=== PATIENT | male | born 1955 | race Caucasian/White ===

== ENCOUNTER 2020-07-16 10:28 | Emergency (ER) | payer SELFPAY ==
[2020-07-16] MEDS ORDERED: Aspirin 81 MG Tab.Chew PO ONE (11:02)
[2020-07-16] MEDS ORDERED: Ketorolac 60 MG/2 ML SDV IM ONE (11:04)
--- NOTE | 2020-07-16 11:45 | EDM.PDOC ---
ED HPI GENERAL MEDICAL PROBLEM - General Chief Complaint: Chest Pain Stated Complaint: CHEST PAINS Time Seen by Provider: 07/16/20 10:45 Source of Information: Reports: Patient History Limitations: Reports: No Limitations - History of Present Illness INITIAL COMMENTS - FREE TEXT/NARRATIVE: Patient presented to the ED because of chest pain for 3 days and left shoulder pain for many years. The chest pain is kind of dull ache, intermittent. There is no nausea,vomiting, dyspnea or diaphoresis. - Related Data Allergies Allergy/AdvReac Type Severity Reaction Status Date / Time No Known Allergies Allergy Verified 07/16/20 10:42 Home Meds: Home Meds Lisinopril/Hydrochlorothiazide [Lisinopril-Hctz 10-12.5 mg Tab] 1 tab DAILY 07/16/20 [History] Simvastatin 10 mg PO BEDTIME 07/16/20 [History] Tamsulosin HCl [Flomax] 0.4 mg PO BEDTIME 07/16/20 [History] ED ROS GENERAL - Review of Systems Review Of Systems: See Below Constitutional: Reports: No Symptoms HEENT: Reports: No Symptoms Respiratory: Reports: No Symptoms Cardiovascular: Reports: Chest Pain Endocrine: Reports: No Symptoms GI/Abdominal: Reports: No Symptoms : Reports: No Symptoms Musculoskeletal: Reports: No Symptoms Skin: Reports: No Symptoms Neurological: Reports: No Symptoms Psychiatric: Reports: No Symptoms ED EXAM, GENERAL - Physical Exam Exam: See Below Exam Limited By: No Limitations General Appearance: Alert, No Apparent Distress Eye Exam: Bilateral Eye: PERRL Ears: Normal External Exam, Normal Canal Nose: Normal Inspection, Normal Mucosa Throat/Mouth: Normal Inspection, Normal Lips, Normal Teeth Head: Atraumatic, Normocephalic Neck: Normal Inspection, Supple, Non-Tender Respiratory/Chest: No Respiratory Distress, Lungs Clear, Normal Breath Sounds Cardiovascular: Normal Peripheral Pulses, Regular Rate, Rhythm, No Edema, No Gallop, No JVD, No Murmur GI/Abdominal: Normal Bowel Sounds, Soft, Non-Tender, No Organomegaly Extremities: Normal Inspection, Normal Range of Motion Course - Vital Signs Text/Narrative:: Labs/EKG/CXR result wasdiscussed with patient ASA 324 mg po x1 Toradol 60 mg IM x1 Last Recorded V/S: Last Vital Signs Temp 36.6 C 07/16/20 10:44 Pulse 78 07/16/20 10:44 Resp 18 07/16/20 10:44 BP 159/74 H 07/16/20 10:44 Pulse Ox 98 07/16/20 10:44 - Orders/Labs/Meds Orders: Active Orders 24 hr Category Date Time Status EKG Documentation Completion [RC] ASDIRECTED Care 07/16/20 11:01 Active Chest 1V Frontal [CR] Stat Exams 07/16/20 11:00 Taken Knee 3V Bi [CR] Stat Exams 07/16/20 11:36 Ordered EKG 12 Lead [EK] Routine Ther 07/16/20 11:00 Ordered Labs: Laboratory Tests 07/16/20 07/16/20 07/16/20 Range/Units 10:35 10:35 10:35 WBC 7.0 (4.5-12.0) X10-3/uL RBC 4.84 (4.30-5.75) x10(6)uL Hgb 16.2 (13.5-17.8) g/dL Hct 47.6 (30.0-51.3) % MCV 98.5 H (80-96) fL MCH 33.5 (27.7-33.6) pg MCHC 34.0 (32.2-35.4) g/dL RDW 12.4 (11.5-15.5) % Plt Count 288 (125-369) X10(3)uL MPV 7.5 (7.4-10.4) fL Neut % (Auto) 59.2 (46-82) % Lymph % (Auto) 27.2 (13-37) % [place] % (Auto) 8.8 (4-12) % Eos % (Auto) 4 (1.0-5.0) % Baso % (Auto) 0 (0-2) % Neut # (Auto) 4.2 (1.6-8.3) # Lymph # (Auto) 1.9 (0.6-5.0) # [place] # (Auto) 0.6 (0.0-1.3) # Eos # (Auto) 0.3 (0.0-0.8) # Baso # (Auto) 0.0 (0.0-0.2) # PT (9.0-11.1) sec INR (1.00-1.24) APTT (24.4-33.2) SECONDS D-Dimer, Quantitative (0.0-0.59) mg/LFEU Sodium 137 (135-145) mmol/L Potassium 3.6 (3.5-5.3) mmol/L Chloride 100 (100-110) mmol/L Carbon Dioxide 26 (21-32) mmol/L BUN 13 (7-18) mg/dL Creatinine 0.8 (0.70-1.30) mg/dL Est Cr Clr Drug Dosing 100.66 mL/min Estimated GFR (MDRD) > 60 (>60) BUN/Creatinine Ratio 16.3 (9-20) Glucose 110 (80-116) mg/dL Calcium 9.2 (8.6-10.2) mg/dL Total Bilirubin 0.9 (0.1-1.3) mg/dL AST 18 (5-25) IU/L ALT 21 (12-36) U/L Alkaline Phosphatase 74 (56-112) IU/L Troponin I 6.8 (4.0-60.3) pg/mL Total Protein 7.4 (6.0-8.0) g/dL Albumin 3.9 (3.2-4.6) g/dL Globulin 3.5 g/dL Albumin/Globulin Ratio 1.1 10/30/20 Range/Units 10:35 WBC (4.5-12.0) X10-3/uL RBC (4.30-5.75) x10(6)uL Hgb (13.5-17.8) g/dL Hct (30.0-51.3) % MCV (80-96) fL MCH (27.7-33.6) pg MCHC (32.2-35.4) g/dL RDW (11.5-15.5) % Plt Count (125-369) X10(3)uL MPV (7.4-10.4) fL Neut % (Auto) (46-82) % Lymph % (Auto) (13-37) % [place] % (Auto) (4-12) % Eos % (Auto) (1.0-5.0) % Baso % (Auto) (0-2) % Neut # (Auto) (1.6-8.3) # Lymph # (Auto) (0.6-5.0) # [place] # (Auto) (0.0-1.3) # Eos # (Auto) (0.0-0.8) # Baso # (Auto) (0.0-0.2) # PT 10.7 (9.0-11.1) sec INR 0.99 L (1.00-1.24) APTT 24.2 L (24.4-33.2) SECONDS D-Dimer, Quantitative 0.59 (0.0-0.59) mg/LFEU Sodium (135-145) mmol/L Potassium (3.5-5.3) mmol/L Chloride (100-110) mmol/L Carbon Dioxide (21-32) mmol/L BUN (7-18) mg/dL Creatinine (0.70-1.30) mg/dL Est Cr Clr Drug Dosing mL/min Estimated GFR (MDRD) (>60) BUN/Creatinine Ratio (9-20) Glucose (80-116) mg/dL Calcium (8.6-10.2) mg/dL Total Bilirubin (0.1-1.3) mg/dL AST (5-25) IU/L ALT (12-36) U/L Alkaline Phosphatase (56-112) IU/L Troponin I (4.0-60.3) pg/mL Total Protein (6.0-8.0) g/dL Albumin (3.2-4.6) g/dL Globulin g/dL Albumin/Globulin Ratio Meds: Medications Discontinued Medications Generic Name Dose Route Start Last Admin Trade Name Freq PRN Reason Stop Dose Admin Aspirin 324 mg 07/16/20 11:02 07/16/20 10:38 Aspirin PO 07/16/20 11:03 324 mg ONETIME ONE Administration Ketorolac Tromethamine 60 mg 07/16/20 11:04 07/16/20 11:14 Toradol IM 07/16/20 11:05 60 mg ONETIME ONE Administration Departure - Departure Time of Disposition: 11:45 Disposition: Home, Self-Care 01 Condition: Good Clinical Impression: Chest pain, Shoulder pain Instructions: Shoulder Pain, [id number], Nonspecific Chest Pain, Adult, [id number] Referrals: Umair Villalobos PA [Primary Care Provider] - Forms: ED Department Discharge Additional Instructions: Please read discharge instructions on chest pain and shoulder pain Follow up with your doctor this coming week so you can have stress test Take aleve 2 tablets with tylenol 1000 mg every 12 hours as needed for pain Sepsis Event Note (ED) - Evaluation Sepsis Screening Result: No Definite Risk - Focused Exam Vital Signs: Vital Signs Temp Pulse Resp BP Pulse Ox 07/16/20 10:44 36.6 C 78 18 159/74 H 98 - My Orders Last 24 Hours: My Active Orders 07/16/20 11:00 Chest 1V Frontal [CR] Stat EKG 12 Lead [EK] Routine 07/16/20 11:01 EKG Documentation Completion [RC] ASDIRECTED 07/16/20 11:36 Knee 3V Bi [CR] Stat - Assessment/Plan Last 24 Hours: My Active Orders 07/16/20 11:00 Chest 1V Frontal [CR] Stat EKG 12 Lead [EK] Routine 07/16/20 11:01 EKG Documentation Completion [RC] ASDIRECTED 07/16/20 11:36 Knee 3V Bi [CR] Stat
--- NOTE | 2020-07-16 11:59 | CR ---
INDICATION: Chest pain. CHEST, ONE VIEW: Two AP upright portable views of the chest were obtained 07/16/20 - no comparison. Hyperaeration with somewhat flattened diaphragm leaves suggests COPD - correlate clinically. Heart and mediastinum are unremarkable. Overlying EKG leads are noted. An active infiltrate or effusion was not identified. IMPRESSION: No acute process. MTDD
== END 2020-07-16 12:10 | disposition home or self-care (01) ==
LOC: FB.ED 10:28
DX: R07.9 Chest pain, unspecified (principal); M25.512 Pain in left shoulder; Z79.899 Other long term (current) drug therapy
CPT/HCPCS: 36415; 71045; 80053; 84484; 85025; 85379; 85610; 85730; 93005; 96372; 99285; A9270; J1885; 99283